=== PATIENT | male | born 1965 | race Caucasian/White ===

== ENCOUNTER 2016-05-14 07:08 | Inpatient (IN) | payer OTHER ==
[2016-05-01 09:49] VITALS: BMI 28.0
--- NOTE | 2016-05-05 10:05 | DIAGNOSTIC IMAGING REPORT ---
CHEST 2 VIEWS ROUTINE CLINICAL HISTORY: Preoperative evaluation. COMPARISON STUDY: No previous studies for comparison. FINDINGS: Lung volumes are at the lower limits of normal. There is no pneumothorax or pleural effusion. There is no evidence of pulmonary edema. Cardiac size is normal. Mediastinal contours are normal. There are suspected postsurgical findings within the lower cervical spine. IMPRESSION: No acute cardiopulmonary findings. Electronically signed by: Wayne Scott M.D. 05/05/2016 10:03 AM Dictated Date/Time: 05/05/2016 10:03 AM
[2016-05-05 10:17] LABS: BASO % 0.3 %; BASO ABS # 0.02 K/uL (0-0.2); COMPLETE YES; IG% 0.2 %; LYMPH % 23.8 %; LYMPH ABS # 1.45 K/uL (1.2-3.4); MEAN CELL VOLUME 91.5 fL (80-100); MEAN CORPUSCULAR HEMOGLOBIN 31.6 pg (25-34); MEAN CORPUSCULAR HGB CONC 34.5 g/dl (32-36); MEAN PLATELET VOLUME 8.8 fL (7.4-10.4); MONO % 6.1 %; NEUT % 68.6 %; PLATELET COUNT 278 K/uL (130-400); RED BLOOD COUNT 4.81 M/uL (4.7-6.1); WHITE BLOOD COUNT 6.09 K/uL (4.8-10.8)
[2016-05-05 10:52] LABS: CALCIUM 9.6 mg/dl (8.5-10.1); POTASSIUM 4.2 mmol/L (3.5-5.1)
[2016-05-05 11:51] LABS: URINE APPEARANCE CLEAR (CLEAR); URINE BILIRUBIN NEG (NEG); URINE COLOR YELLOW; URINE NITRITE NEG (NEG); URINE PH 5.5 (4.5-7.5); UROBILINOGEN NEG (NEG)
[2016-05-05 12:16] LABS: MANUAL MICROSCOPIC REQUIRED? NO; REVIEW REQ? NO
[~2016-05-14] VITALS: Ht 182.9 cm; Wt 28.5 kg
[2016-05-14] VITALS (8 sets, daily range): BP systolic 99–156; BP diastolic 64–99; PULSE 87–108; TEMP 36.4–36.8; O2SAT 94–99; Ht 182.9 cm; Wt 28.5 kg
[~2016-05-14 07:08] MED LIST: ACET-1256 PO; AMIT100T2 PO; CEFAZOLIN 2000 MG/60 ML D5W IV SCH; CeleBREX 200 MG CAP PO SCH; HYDR-4332 PO; IBUP-1428 PO; LACTATED RINGER'S 1000ML 1,000 ML IV SCH; LISI20TA3 PO; MELA1CAP9 PO; PREGABALIN 75 MG CAP PO SCH; PRLSR20 PO
[2016-05-14] MEDS ORDERED: GLYCOPYRROLATE INJ 0.2 MG/ML VIAL ONE ×2 (08:09→09:52)
[2016-05-14] MEDS ORDERED: SUCCINYLCHOLINE CHLORIDE 20 MG/ML 10 ML VIAL IV ONE (08:09)
[2016-05-14] MEDS ORDERED: ONDANSETRON INJ 2 MG/ML 2 ML VIAL ONE ×2 (08:09→09:52)
[2016-05-14] MEDS ORDERED: EpHEDrine SULFATE INJ 50 MG/ML AMP ONE (08:09)
[2016-05-14] MEDS ORDERED: LIDOCAINE HCL 2% 2 ML VIAL (20MG/ML) ONE (08:09)
[2016-05-14] MEDS ORDERED: DEXAMETHASONE SOD INJ 4 MG/ML VIAL ONE ×2 (08:09→08:12)
[2016-05-14] MEDS ORDERED: NEOSTIGMINE METHYLSULFATE 5 MG/5 ML SYR ONE (08:09)
[2016-05-14] MEDS ORDERED: MIDAZOLAM HCL 1 MG/ML 2ML VIAL ONE (08:09)
[2016-05-14] MEDS ORDERED: PHENYLEPHRINE HCL INJ 10 MG/ML VIAL ONE ×2 (08:09→10:26)
[2016-05-14] MEDS ORDERED: PROPOFOL IV EMULSION 10 MG/ML 20 ML VIAL IV ONE (08:09)
[2016-05-14] MEDS ORDERED: FENTANYL CITRATE INJ 50 MCG/1 ML 2 ML VIAL ONE ×3 (08:09→11:09)
[2016-05-14] MEDS ORDERED: ROCURONIUM BROMIDE 10 MG/ML 5 ML VIAL ONE ×2 (08:09→10:06)
--- NOTE | 2016-05-14 08:54 | History and Physical ---
History & Physical Date May 14, 2016. Chief Complaint LBP and bilateral leg pain History of Present Illness The patient is a 50 year old male with complaints of above who failed outpatient management. No numbness or weakness. trialed PT and JULIA without benefit. MRI shows spinal stenosis L4-s1 and spondylolisthesis L5-S1. no incontinence Past Medical/Surgical History Medical Problems: (1) DDD (degenerative disc disease), cervical HTN hi chol OA hx ACDF Allergies Coded Allergies: No Known Allergies (Unverified , 05/14/16) Home Medications Scheduled Amitriptyline Hcl (Elavil), 100 MG PO HS Hydrocodone-Acetaminophen (LORTAB 10-325 mg), 1 TAB PO TID Ibuprofen (Motrin), 800 MG PO TID Lisinopril (Prinivil), 20 MG PO HS Melatonin (Melatonin), 10 MG PO HS Omeprazole (Prilosec), 20 MG PO HS Scheduled PRN Acetaminophen (Tylenol), 1,000 MG PO TID PRN for Pain Physical Examination Skin: warm/dry Eyes: normal inspection ENT: normal ENT inspection Head: normocephalic, atraumatic Neck: supple, trachea midline Respiratory/Chest: lungs clear, no respiratory distress Cardiovascular: regular rate, rhythm Back: normal inspection Extremities: normal inspection Neurologic/Psych: no motor/sensory deficits, normal reflexes, oriented x 3 Diagnosis L4-S1 stenosis/degen spondy Plan of Treatment L4-S1 dec/PSF
[2016-05-14] MEDS ORDERED: HEPARIN SOD (PORCINE) 1000 UNIT/ML 10 ML VIAL ONE (09:08)
[2016-05-14] MEDS ORDERED: THROMBIN 5000 UNITS KIT ONE (09:08)
[2016-05-14] MEDS ORDERED: THROMBIN FOR SOLN 20000 UNIT KIT ONE ×2 (09:08→09:09)
[2016-05-14] MEDS ORDERED: BUPIVACAINE/EPINEPHRINE 0.5% MPF 1:200,000 30 ML VIAL ONE (09:08)
[2016-05-14] MEDS ORDERED: BACITRACIN 50000 UNIT VIAL ONE (09:08)
[2016-05-14] MEDS ORDERED: OXYC1TAB3 PO (09:20)
--- NOTE | 2016-05-14 09:21 | Discharge Instructions ---
Discharge Instructions Admission Reason for Admission: Lumbar Spinal Stenosis Discharge Discharge Diagnosis / Problem: Lumbar Stenosis Discharge Goals Goal(s): Decrease discomfort, Improve function, Increase independence Activity Recommendations Activity Limitations: as noted below Lifting Limitations: no more than 5 pounds Exercise/Sports Limitations: until after follow-up appointment May Resume Sexual Activity: after follow-up appointment Shower/Bathe: may shower/bathe in 3 days . Instructions / Follow-Up Instructions / Follow-Up ACTIVITY RECOMMENDATIONS: SELF CARE INSTRUCTIONS AFTER THORACIC/LUMBAR FUSIONS 1. You may walk to your tolerance. It is good exercise for your legs and back. Expect some back and intermittent leg aches and pains. 2. You may perform "counter-top" level activities (make a sandwich, fartun with a project, etc.). 3. No bending or lifting of more than 10 pounds or back twisting of any nature (roll like a log when turning in bed). 4. You may ride in a car for 20-30 minutes at a time. No driving until after your first visit with your doctor. 5. Frequent changes of position and restricting sitting to 30 minutes at a time will help limit the amount of back spasms and stiffness you may experience. 6. You may discontinue the use of ambulatory aids (cane, crutches, etc.) once your strength and confidence allow. 7. You may bioinformatics technician the shower and let water strike your incision when you arrive home at least once daily. Do not take a tub bath, sit in a hot tub or go into a swimming pool until after your first recheck in the office. SPECIAL CARE INSTRUCTIONS: VERY IMPORTANT TO READ AND REVIEW A. Your surgical incision has been closed with a cosmetic suture under the skin that will dissolve in about 6 weeks. In 14 days, you can use a pair of clean scissors and cut the suture that is left outside of the skin at the ends of your incision. 1. The small skin tapes can be removed 7 days after surgery if they have not fallen off by that point. 2. You may keep the wound open to air as much as possible to promote healing after post-op day number 5 unless told otherwise by your doctor. 3. If you think the wound looks like it is becoming infected (redness or worsening drainage) and/or you are experiencing fever, chill or worsening back pain and muscle spasms, contact the office so that we may evaluate you as soon as possible. B. Complications are uncommon, but please contact us if you have any signs or symptoms of: 1. wound infection (fever higher than 102.5 degrees F, redness, separation of wound, drainage, or increasing pain from the incision) 2. blood clots in legs (pain, swelling, redness and warmth in legs) 3. urinary tract infection (fever higher than 102.5 degrees F, burning upon urination or increased frequency of urination) 4. nerve problems (inability to walk on your toes or heels, numbness, loss of bowel or bladder control) 5. any other symptoms that concern you C. Please call the office at if you have any concerns or questions about your operation or recovery. D. No smoking! Smoking drastically decreases the chance of a solid fusion. E. Do not take any anti-inflammatory medications (Indocin, Advil, Motrin, Aspirin, Naprosyn, etc.) as these may inhibit the chance of a solid fusion. Tylenol is okay to take for pain. MANAGING PAIN AFTER SPINAL SURGERY 1. Narcotic medication is intended for short-term use and will be provided for surgical pain. Surgical pain usually lasts for a period of 4-6 weeks. Narcotic medication includes Percocet, Vicodin, Darvocet, Tylenol #3 or Lortab. 2. Longer-term pain is more appropriately treated with non-narcotic medication such as Tylenol ES. 3. Muscle spasm is not appropriately treated with narcotics. Muscle relaxers such as Soma, Flexeril or Skelaxin can be used along with Tylenol ES. 4. Remember that we all live with some "aches and pains". This is not unusual or uncommon after an injury or as we get older. a. Back pain is expected and may include muscle spasms for 4 to 6 weeks after surgery. The pain should gradually improve. If the pain worsens for no apparent reason, please contact the office. b. Intermittent leg pain may also be experienced and should not be concerned about unless it worsens for no apparent reason. If so, please contact the office. 5. We will provide appropriate medication within the normal guidelines of their prescribed use. We will also be very cautious and aware of potential abuse and extended duration of patients' medication needs. a. Pain medications are for your comfort and to assist with sleep and rest so that the tissue can heal. They are not provided in order to return to normal activity and should not be used through the day. To do so or worsening pain at night can result from ongoing tissue damage and development of tolerance to the prescribed medicine. 6. Please allow 2-3 days to process refills. Prescriptions will not be mailed but must be picked up at the office. FOLLOW UP VISIT: Keep your scheduled follow-up appointment. Any questions, please call the office at . Current Hospital Diet Patient's current hospital diet: Discharge Diet Recommended Diet: Regular Diet Pending Studies Studies pending at discharge: no Medical Emergencies . Who to Call and When: Medical Emergencies: If at any time you feel your situation is an emergency, please call 911 immediately. . Non-Emergent Contact Non-Emergency issues call your: Surgeon Call Non-Emergent contact if: temperature is above 101, your pain is not controlled, your pain is worsening, your pain is unusual for you, your pain is concerning you, wound has increased drainage, wound has increased redness, wound has increased pain, you have any medication questions . "Provider Documentation" section prepared by Yuniel Granger. VTE Core Measure Inpt VTE Proph given/why not?: Jessa GONSALEZ Drug Monitoring Program Search Results: patient reviewed within database, no issues identified
[2016-05-14] MEDS ORDERED: EpHEDrine SULFATE INJ 50 MG/ML AMP IV PRN (10:30)
[2016-05-14] MEDS ORDERED: ONDANSETRON INJ 2 MG/ML 2 ML VIAL IV PRN ×2 (10:30→11:30)
[2016-05-14] MEDS ORDERED: ATROPINE SULFATE 0.1 MG/ML 5ML SYR IV PRN (10:30)
[2016-05-14] MEDS ORDERED: PROMETHAZINE HCL INJ 6.25 MG in SODIUM CHLORIDE 0.9% 50ML 50 ML IV PRN (10:30)
--- NOTE | 2016-05-14 11:19 | [facility] Post Operative Brief Note ---
Immediate Operative Summary Operative Date May 14, 2016. Pre-Operative Diagnosis L4-S1 stenosis/degenerative spondylosis Post-Operative Diagnosis L4-S1 stenosis/degenerative spondylosis Procedure(s) Performed L4-S1 Decompression and Instrumented Fusion; Interbody Fusion; Infuse, Arteriocyte Surgeon Dr. Roberto Carlos Vines Job Counselor Surgeon(s) Jean Carlos Granger PA-C Estimated Blood Loss 250ML Findings dict Specimens none per surgeon
[2016-05-14] MEDS: SODIUM CHLORIDE 0.9% 1000ML 1,000 ML IV SCH (11:20)
[2016-05-14] MEDS ORDERED: SODIUM CHLORIDE 0.9% 1000ML 1,000 ML IV SCH (11:20)
--- NOTE | 2016-05-14 11:22 | DIAGNOSTIC IMAGING REPORT ---
INTRAOPERATIVE LUMBAR SPINE 2 VIEWS CLINICAL HISTORY: L4-S1 DECOMPRESSION/FUSION/INTERBODY COMPARISON STUDY: No previous studies for comparison. FINDINGS: 2 intraoperative fluoroscopic spot images are provided for interpretation. 9 seconds of fluoroscopic time was utilized. There are postsurgical changes of an L5-S1 discectomy with interbody spacer present. There is a grade 1 spinal listhesis of L5 and S1. There are pedicle screws present the L4, L5, and S1 levels with adjoining spinal rods. IMPRESSION: Postsurgical changes as described above. Electronically signed by: Sadiq Ayala M.D. 05/14/2016 11:21 AM Dictated Date/Time: 05/14/2016 11:19 AM
[2016-05-14] MEDS ORDERED: HYDROmorphone HCL 0.5MG/ML 50 ML CASSETTE ONE (11:27)
[2016-05-14] MEDS ORDERED: ACETAMINOPHEN 500 MG TAB PO PRN (11:30)
[2016-05-14] MEDS ORDERED: MAGNESIUM HYDROXIDE SUSP 30 ML UDC PO PRN (11:30)
[2016-05-14] MEDS ORDERED: hydrOXYzine HCL 25 MG TAB PO PRN (11:30)
[2016-05-14] MEDS ORDERED: LORAZEPAM INJ 0.5 MG in SYRINGE 0 ML IV PRN (11:30)
[2016-05-14] MEDS ORDERED: PROMETHAZINE HCL INJ 12.5 MG in SODIUM CHLORIDE 0.9% 50ML 50 ML IV PRN (11:30)
[2016-05-14] MEDS ORDERED: METOCLOPRAMIDE HCL INJ 5 MG/ML 2 ML VIAL IV PRN (11:30)
[2016-05-14] MEDS ORDERED: NALOXONE HCL 0.4 MG/1 ML VIAL/CARP IV PRN ×2 (11:30)
[2016-05-14] MEDS ORDERED: ACETAMINOPHEN IV 100 ML IV PRN (11:30)
[2016-05-14] MEDS ORDERED: DC PCA PRN (11:30)
[2016-05-14] MEDS ORDERED: FAMOTIDINE 20 MG TAB PO PRN (11:30)
[2016-05-14] MEDS ORDERED: ALUMINUM/MAGNESIUM SUSP 30 ML UDC PO PRN (11:30)
[2016-05-14] MEDS ORDERED: BISACODYL 10 MG SUPP PR PRN (11:30)
[2016-05-14] MEDS ORDERED: SOD PHOSPHATE/SOD BIPHOSPHATE ENEMA 132 ML BTL PR PRN (11:30)
[2016-05-14] MEDS: FENTANYL CITRATE INJ 50 MCG/1 ML 2 ML VIAL IV PRN ×4 (11:33→11:50)
[2016-05-14] MEDS: HYDROmorphone INJ 1 MG/ML SYR IV PRN ×8 (11:57→12:35)
[2016-05-14] MEDS ORDERED: NURSING VERBAL MED ORDER ONE (12:17)
--- NOTE | 2016-05-14 12:37 | Anesthesiology Progress Note ---
Anesthesia Post Op Note Date & Time May 14, 2016 at 12:36 Vital Signs Pain Intensity: 7.0 Vital Signs Past 12 Hours Date Time Temp Pulse Resp B/P Pulse Ox O2 Delivery O2 Flow Rate FiO2 05/14/16 12:25 88 15 131/77 100 Nasal Cannula 2 05/14/16 12:15 88 16 127/74 100 Nasal Cannula 2 05/14/16 12:05 87 15 120/79 100 Nasal Cannula 2 05/14/16 11:55 87 13 133/79 100 Nasal Cannula 4 05/14/16 11:45 82 12 132/80 100 Mask 10 05/14/16 11:35 82 15 104/80 100 Mask 10 05/14/16 11:27 37.2 94 12 140/80 100 Mask 10 05/14/16 07:55 36.4 91 20 156/99 99 Room Air Notes Mental Status: alert / awake / arousable, participated in evaluation Pt Amnestic to Procedure: Yes Nausea / Vomiting: adequately controlled Pain: adequately controlled Airway Patency, RR, SpO2: stable & adequate BP & HR: stable & adequate Hydration State: stable & adequate Anesthetic Complications: no major complications apparent Challenge pain control due to narcotic tolerance. Pain acceptably managed with dilaudid 4mg and fentanyl 200 mcg in pacu. He has a dilaudid TECHNICAL SPECIALIST CYTOGENETICS to floor.
[2016-05-14] MEDS: HYDROmorphone HCL 0.5MG/ML 50 ML CASSETTE IV PRN ×2 (15:07→22:56)
[2016-05-14] MEDS: CEFAZOLIN IV 2,000 MG in DEXTROSE 5% 50ML 50 ML IV SCH (17:51)
[2016-05-14] MEDS: LORAZEPAM 0.5 MG TAB PO PRN (18:56)
[2016-05-14] MEDS ORDERED: DOCUSATE SODIUM/SENNA 50/8.6MG TAB PO SCH (21:00)
[2016-05-14] MEDS ORDERED: LISINOPRIL 20 MG TAB PO SCH (21:00)
[2016-05-14] MEDS ORDERED: PANTOprazole SOD 40 MG TAB PO SCH (21:00)
[2016-05-14] MEDS ORDERED: AMITRIPTYLINE HCL 100 MG TAB PO SCH (21:00)
[2016-05-14] MEDS: DEXAMETHASONE INJ 6 MG in SYRINGE 0 ML IV SCH (22:16)
[2016-05-15] MEDS: SODIUM CHLORIDE 0.9% 1000ML 1,000 ML IV SCH (00:05)
[2016-05-15] MEDS: CEFAZOLIN IV 2,000 MG in DEXTROSE 5% 50ML 50 ML IV SCH (02:26)
[2016-05-15] MEDS: LORAZEPAM 0.5 MG TAB PO PRN ×2 (02:26→11:35)
[2016-05-15 03:42] VITALS: BP 106/67; PULSE 94; TEMP 36.8; O2SAT 97
[2016-05-15] MEDS: DEXAMETHASONE INJ 6 MG in SYRINGE 0 ML IV SCH ×2 (05:31→13:33)
[2016-05-15 05:52] LABS: COMPLETE YES; HEMATOCRIT 33.1 % (42-52); IG% 0.3 %; LYMPH ABS # 0.59 K/uL (1.2-3.4); MEAN CELL VOLUME 90.9 fL (80-100); MEAN CORPUSCULAR HGB CONC 34.1 g/dl (32-36); MEAN PLATELET VOLUME 8.5 fL (7.4-10.4); MONO % 6.3 %; NEUT % 87.4 %; PLATELET COUNT 289 K/uL (130-400); RED BLOOD COUNT 3.64 M/uL (4.7-6.1); WHITE BLOOD COUNT 9.79 K/uL (4.8-10.8)
[2016-05-15] MEDS ORDERED: HYDROmorphone INJ 0.5 MG/0.5 ML SYR IV PRN (06:00)
[2016-05-15] MEDS ORDERED: DC PCA ONE (06:00)
[2016-05-15 06:16] LABS: BUN/CREATININE RATIO 14.6 (10-20); CALCIUM 8.4 mg/dl (8.5-10.1); CREATININE 0.86 mg/dl (0.60-1.40); POTASSIUM 4.4 mmol/L (3.5-5.1)
[2016-05-15] MEDS ORDERED: NURSING VERBAL MED ORDER ONE (07:00)
[2016-05-15 07:10] VITALS: BP 119/76; PULSE 118; TEMP 36.5; O2SAT 100
[2016-05-15] MEDS: OXYCODONE HCL IR 5 MG TAB (IMMEDIATE RELEASE) PO PRN ×3 (07:26→16:13)
[2016-05-15 07:27] VITALS: PULSE 108
--- NOTE | 2016-05-15 07:41 | Anesthesiology Progress Note ---
Anesthesia Post Op Note Date & Time May 15, 2016 at 07:42 Vital Signs Vital Signs Past 12 Hours Date Time Temp Pulse Resp B/P Pulse Ox O2 Delivery O2 Flow Rate FiO2 05/15/16 07:27 108 05/15/16 07:10 36.5 118 19 119/76 100 Room Air 05/15/16 03:42 36.8 94 18 106/67 97 Room Air 05/14/16 23:50 Room Air 05/14/16 23:07 36.8 92 18 119/80 97 Room Air Notes Mental Status: alert / awake / arousable, participated in evaluation Pt Amnestic to Procedure: Yes Nausea / Vomiting: adequately controlled Pain: adequately controlled Airway Patency, RR, SpO2: stable & adequate BP & HR: stable & adequate Hydration State: stable & adequate Anesthetic Complications: no major complications apparent
--- NOTE | 2016-05-15 08:27 | OPERATIVE REPORT ---
DATE OF OPERATION: 05/15/2016 PREOPERATIVE DIAGNOSES: 1. L4-L5 and L5-S1 spinal stenosis. 2. L4-L5, L5-S1 facet arthrosis. 3. L5-S1 degenerative spondylolisthesis -- grade 1. POSTOPERATIVE DIAGNOSIS: Same. PROCEDURES: 1. L4 laminectomy with bilateral L4-L5 medial facetectomies. 2. L5 laminectomy with bilateral L4-L5 medial facetectomies. 3. Segmental pedicle screw instrumentation -- bilateral L4, L5 and S1 with K2M Wisdom pedicle screws. 4. Posterolateral fusion L4-S1 -- bilateral with Infuse BMP on a collagen sponge, tricalcium phosphate, local bone, bone putty, bone marrow aspirate. 5. Right L5-S1 transforaminal lumbar interbody fusion with K2M titanium interbody spacer, local bone and bone putty. 6. Right iliac crest bone marrow aspiration, stem cell concentration, and application of bone graft. SURGEON: Dr. Vines. DRY KILN BURNER: Yuniel Granger PA-C. Please note he participated in all portions of the procedure and was critical for performance of the procedure, participated in positioning, prepping, draping, retraction and wound closure. ANESTHESIA: General endotracheal anesthesia. COMPLICATIONS: None. ESTIMATED BLOOD LOSS: Per anesthesia record. OPERATION AND FINDINGS: PROCEDURE: After identification of patient and operative level, he was brought to the OR where he underwent induction of general anesthesia. He was then positioned prone on Wilbert OR table. All bony prominences were well padded. Care was taken to avoid pressure on the periorbital area. Lumbosacral area was sterilely prepped and draped in usual fashion. Antibiotics were administered. Time-out was performed. Level was confirmed and skin incision made from spinous process of L3 to the sacrum. Posterior exposure was accomplished. Gelpi retractors were placed. Level was confirmed with fluoroscopy. A midline decompression was accomplished with removal lamina and spinous process of L4 and L5 and takedown ligamentum flavum at L4-L5 and L5-S1. The facets were markedly degenerated. I used an osteotome to remove the medial facets and completed decompression with Kerrisons, palpated the nerve roots were decompressed from L4-S1 bilaterally. I then placed pedicle screws bilaterally at L4, L5 and S1 with K2M Wisdom pedicle screws. I checked position with fluoroscopy and then did a discectomy on the left at L5-S1. I prepared the disc space at L5-S1 with mike and curettes down to bleeding bony endplates and determined graft size with paddle distractors. I inserted a cage filled with local bone, bone putty and bone marrow aspirate into the disc space at L5-S1, had good stability and confirmed position with fluoroscopy. I then lowered the Behzad frame to restore lordosis, applied rods and end caps final tightening. I irrigated with bacitracin solution and then decorticated the transverse processes of L4-L5 and the sacral ala bilaterally with a high speed charity. I also decorticated facets. I then aspirated bone marrow from the right iliac crest via separate stab incision with a Jamshidi needle, concentrated with stem cell concentration system and applied to bone graft. I then packed the lateral gutters from L4-S1 with bone graft mixture. I then confirmed hemostasis and closed in layered fashion over JUAN drain. All sponge and needle counts were correct at the end of the case. I attest to the content of the Intraoperative Record and any orders documented therein. Any exceptio ns are noted below.
[2016-05-15 11:05] VITALS: BP 137/80; PULSE 110; TEMP 36.7; O2SAT 99
[2016-05-15 13:56] VITALS: BP 137/80; PULSE 110; TEMP 36.7; O2SAT 99
--- NOTE | 2016-05-15 14:08 | Orthopedic Progress Note ---
Orthopedic Progress Note Date of Service May 15, 2016. Subjective Post OP Day: 1 Reports: feeling well, pain controlled w PO medications, Denies: SOB, calf pain , chest pain, complaints, light headedness, nausea / vomiting, using HOSPICE PLAN ADMINISTRATOR Objective calves soft nontender, N/V intact, dressing C/D/I, A&O x3, hemovac drainage Date Time Temp Pulse Resp B/P Pulse Ox O2 Delivery O2 Flow Rate FiO2 05/15/16 11:05 36.7 110 20 137/80 99 Room Air 05/15/16 09:01 Room Air 05/15/16 07:27 108 05/15/16 07:20 Room Air 05/15/16 07:10 36.5 118 19 119/76 100 Room Air 05/15/16 03:42 36.8 94 18 106/67 97 Room Air 05/14/16 23:50 Room Air 05/14/16 23:07 36.8 92 18 119/80 97 Room Air 05/14/16 19:27 36.7 91 18 116/75 94 Room Air 05/14/16 16:15 36.4 87 18 99/64 97 Nasal Cannula 2.0 05/14/16 15:20 Nasal Cannula 2.0 05/14/16 15:15 36.4 90 18 109/72 96 Nasal Cannula 2.0 05/14/16 14:14 108 18 124/76 96 Nasal Cannula 2.0 Laboratory Results 24 Hours: Test 05/15/16 05:19 White Blood Count 9.79 K/uL Red Blood Count 3.64 M/uL Hemoglobin 11.3 g/dL Hematocrit 33.1 % Mean Corpuscular Volume 90.9 fL Mean Corpuscular Hemoglobin 31.0 pg Mean Corpuscular Hemoglobin Concent 34.1 g/dl Platelet Count 289 K/uL Mean Platelet Volume 8.5 fL Neutrophils (%) (Auto) 87.4 % Lymphocytes (%) (Auto) 6.0 % Monocytes (%) (Auto) 6.3 % Eosinophils (%) (Auto) 0.0 % Basophils (%) (Auto) 0.0 % Neutrophils # (Auto) 8.55 K/uL Lymphocytes # (Auto) 0.59 K/uL Monocytes # (Auto) 0.62 K/uL Eosinophils # (Auto) 0.00 K/uL Basophils # (Auto) 0.00 K/uL Assessment & Plan Assessment: drain slowed down, patient anxious to be d/c'd, walking independently in [place]. pain controlled Plan: d/c drain, d/c home
[2016-05-16] MEDS ORDERED: POLYETHYLENE (MIRALAX) 17 GM PACK PO SCH (06:00)
--- NOTE | 2016-05-18 15:42 | EDITING REQUIRED CODING QUERY ---
CODING QUERY To promote full compliance with coding requirements relating to patient care, provider participation is requested in all cases of mat packer uncertainty. Please assist us with the question(s) below: Coding Question(s): Dr. Vines, The operative summary note lists the date of the surgery as 05/14/16 while the operative report states the date as 05/15/16. Please clarify the correct date of the procedure below: ( ) 05/14/16 ( ) 05/15/16 ( ) Other, please explain Physician's Response(s): Thank you for your time, CHEYANNE Hughes, CIVIL SERVICE WORKER
--- NOTE | 2016-05-20 12:16 | DISCHARGE SUMMARY ---
PRINCIPAL DIAGNOSIS: Included L4-L5, L5-S1 spinal stenosis and facet arthrosis L5-S1 degenerative spondylolisthesis. POSTOPERATIVE DIAGNOSIS: Same. PROCEDURE: L4-S1 decompression and instrumented fusion with an L5-S1 transforaminal lumbar interbody fusion and right iliac bone marrow aspiration with stem cell concentration. SURGEON: Dr. Roberto Carlos Vines. INTEGRATION ASSISTANT: Yuniel Granger PA-C. HISTORY OF PRESENT ILLNESS: Please refer to EMR. HOSPITAL COURSE: On 05/14/2016 Mr. Thompson was admitted to [facility] with the above diagnosis. He was taken to preoperative holding where he was identified, evaluated and cleared for surgical management. He was taken to the operating room, introduced with general endotracheal anesthesia. Sterile conditions were set and he successfully underwent the above procedure without complication or issue. He was awakened in stable and satisfactory condition and transported to postoperative recovery. Here vital signs and pain were monitored and managed. He remained medically stable with no issues to report. He was transported to the orthopedic floor for continued postoperative care. Throughout his stay, his vital signs, pain and labs were routinely monitored and managed through physician direction effectively. He participated in physical therapy with good noted progress. DVT and GI prophylactic measures were taken. There were no iatrogenic issues or postoperative complications to note. He was evaluated by Dr. Vines on the morning of 05/15/2016 and indicated for return home. On this date he was discharged from [facility]. DISPOSITION: Home. DISPOSITION CONDITION: Stable. NOTED COMPLICATIONS OR ISSUES: Zero. DISCHARGE INSTRUCTIONS: Please refer to EMR.
== END 2016-05-15 20:43 | disposition home or self-care (01) | DRG 460 ==
LOC: ENRESERVTM → ENRESERVDT → C.ACU 07:08 → C.3E 09:00
PROVIDERS: ADMIT Orthopaedic Surgery Orthopaedic Surgery of the Spine; ATTEND Orthopaedic Surgery Orthopaedic Surgery of the Spine
PROC: 0SG3071 Fusion of Lumbosacral Joint with Autologous Tissue Substitute, Posterior Approach, Posterior Column, Open Approach (ICD-10-PCS; principal; 2016-05-14 09:05)
PROC: 3E0U0GB Introduction of Recombinant Bone Morphogenetic Protein into Joints, Open Approach (ICD-10-PCS; principal; 2016-05-14 09:05)
PROC: 0SG30AJ Fusion of Lumbosacral Joint with Interbody Fusion Device, Posterior Approach, Anterior Column, Open Approach (ICD-10-PCS; principal; 2016-05-14 09:05)
PROC: 0ST40ZZ Resection of Lumbosacral Disc, Open Approach (ICD-10-PCS; principal; 2016-05-14 09:05)
PROC: 07DR3ZZ Extraction of Iliac Bone Marrow, Percutaneous Approach (ICD-10-PCS; principal; 2016-05-14 09:05)
PROC: 0SG0071 Fusion of Lumbar Vertebral Joint with Autologous Tissue Substitute, Posterior Approach, Posterior Column, Open Approach (ICD-10-PCS; principal; 2016-05-14 09:05)
DX: M48.06 Spinal stenosis, lumbar region (principal); M48.07 Spinal stenosis, lumbosacral region; M43.17 Spondylolisthesis, lumbosacral region; M47.816 Spondylosis without myelopathy or radiculopathy, lumbar region; M47.817 Spondylosis without myelopathy or radiculopathy, lumbosacral region; M19.90 Unspecified osteoarthritis, unspecified site; I10 Essential (primary) hypertension; Z98.1 Arthrodesis status; Z92.84 Personal history of unintended awareness under general anesthesia; Z79.891 Long term (current) use of opiate analgesic; Z79.899 Other long term (current) drug therapy